=== PATIENT | male | born 1970 | race Caucasian/White ===

== ENCOUNTER 2016-08-01 20:57 | Inpatient (IN) | payer BC ==
[~2016-08-01] VITALS: Ht 177.8 cm; Wt 163.8 kg
[2016-08-01] MEDS ORDERED: humuLIN REG INSULIN ONE (22:25)
[2016-08-01] MEDS ORDERED: SODIUM CHLORIDE 0.9% 1,000 ML ONE (22:25)
[2016-08-02] VITALS (22 sets, daily range): BP systolic 93–137; RESP 16–20; TEMP 97.4–98.5; Ht 177.8 cm; Wt 163.8 kg
[2016-08-02] MEDS ORDERED: GLUCAGON 1 MG VIAL IM PRN (01:40)
[2016-08-02] MEDS ORDERED: DEPOTESTOSTERONE IM SCH (01:40)
[2016-08-02] MEDS ORDERED: SALINE FLUSH 10 ML FLUSH PRN (01:40)
[2016-08-02] MEDS ORDERED: DEXTROSE 50% SYRINGE 50 ML IV PRN (01:40)
[2016-08-02] MEDS ORDERED: AZITHROMYCIN 500 MG in SODIUM CHLORIDE 0.9% 250 ML IV SCH (03:13)
[2016-08-02] MEDS: SALINE FLUSH 10 ML FLUSH SCH ×3 (04:21→20:54)
[2016-08-02] MEDS: CEFTRIAXONE 1 GM in SODIUM CHLORIDE 0.9% 50 ML IV SCH (04:22)
[2016-08-02] MEDS: SODIUM CHLORIDE 0.9% FLUSH BAG 500 ML IV SCH (04:22)
[2016-08-02] MEDS: OPANA 20 MG PO SCH ×2 (08:12→20:54)
[2016-08-02] MEDS: ALLOPURINOL 300 MG TAB PO SCH ×2 (08:12→20:54)
[2016-08-02] MEDS ORDERED: METOPROLOL 5 MG/5 ML VIAL IV ONE ×3 (12:30→13:15)
[2016-08-02] MEDS ORDERED: LEVEMIR INSULIN SUBQ ONE (12:30)
[2016-08-02] MEDS ORDERED: DILTIAZEM 125 MG in DEXTROSE 125 ML IV ONE (15:00)
[2016-08-02] MEDS ORDERED: DILTIAZEM 125 MG in DEXTROSE 125 ML IV PUSH ONE (15:40)
[2016-08-02] MEDS: CARDIZEM 1 MG/ML DRIP 125 ML IV SCH (15:44)
[2016-08-02] MEDS: Hydrocodone/APAP 10/325 MG TAB PO PRN (18:24)
[2016-08-02] MEDS: LEVOTHYROXINE 0.05 MG TAB PO SCH (20:53)
[2016-08-02] MEDS: Atorvastatin 40 MG TAB PO SCH (20:54)
[2016-08-02] MEDS: LEVOTHYROXINE 0.2 MG TAB PO SCH (20:54)
[2016-08-02] MEDS: VENLAFAXINE XR 75 MG CAP PO SCH (20:54)
[2016-08-02] MEDS ORDERED: DIAZEPAM 5 MG TAB PO SCH (21:00)
[2016-08-02] MEDS ORDERED: DIAZEPAM 5 MG TAB PO PRN (21:00)
[2016-08-02] MEDS ORDERED: LEVEMIR INSULIN SUBQ SCH (21:00)
[2016-08-02] MEDS ORDERED: MISSING DOSE XX ONE (23:55)
[2016-08-03] VITALS (22 sets, daily range): BP systolic 103–154; RESP 16–20; TEMP 97.5–98.9
[2016-08-03] MEDS: CARDIZEM 1 MG/ML DRIP 125 ML IV SCH ×2 (00:18→15:02)
[2016-08-03] MEDS: SODIUM CHLORIDE 0.9% FLUSH BAG 500 ML IV SCH (03:27)
[2016-08-03] MEDS: Hydrocodone/APAP 10/325 MG TAB PO PRN ×3 (03:27→22:35)
[2016-08-03] MEDS: CEFTRIAXONE 1 GM in SODIUM CHLORIDE 0.9% 50 ML IV SCH (08:08)
[2016-08-03] MEDS: ALLOPURINOL 300 MG TAB PO SCH ×2 (08:09→22:17)
[2016-08-03] MEDS: OPANA 20 MG PO SCH ×2 (08:10→22:22)
[2016-08-03] MEDS: SALINE FLUSH 10 ML FLUSH SCH ×2 (08:10→22:17)
[2016-08-03] MEDS ORDERED: METOPROLOL XL 25 MG TAB PO SCH (09:00)
[2016-08-03] MEDS: DILTIAZEM CD 180 MG CAP PO SCH (11:52)
[2016-08-03] MEDS: VENLAFAXINE XR 75 MG CAP PO SCH (21:00)
[2016-08-03] MEDS: METOPROLOL XL 50 MG TAB PO SCH (22:17)
[2016-08-03] MEDS: LEVOTHYROXINE 0.05 MG TAB PO SCH (22:18)
[2016-08-03] MEDS: LEVOTHYROXINE 0.2 MG TAB PO SCH (22:18)
[2016-08-03] MEDS: Atorvastatin 40 MG TAB PO SCH (22:19)
[2016-08-03] MEDS: LEVEMIR INSULIN SUBQ SCH (22:28)
[2016-08-04 03:35] VITALS: BP_SYST 125; RESP 18; TEMP 97.6
[2016-08-04] MEDS: SODIUM CHLORIDE 0.9% FLUSH BAG 500 ML IV SCH (05:34)
[2016-08-04 07:47] VITALS: BP_SYST 112; RESP 18; TEMP 98.4
[2016-08-04] MEDS: DILTIAZEM CD 180 MG CAP PO SCH (08:16)
[2016-08-04] MEDS: SALINE FLUSH 10 ML FLUSH SCH ×2 (08:16→21:13)
[2016-08-04] MEDS: CEFTRIAXONE 1 GM in SODIUM CHLORIDE 0.9% 50 ML IV SCH (08:16)
[2016-08-04] MEDS: METOPROLOL XL 50 MG TAB PO SCH ×2 (08:16→21:15)
[2016-08-04] MEDS: ALLOPURINOL 300 MG TAB PO SCH ×2 (08:16→21:15)
[2016-08-04] MEDS: Hydrocodone/APAP 10/325 MG TAB PO PRN (08:17)
[2016-08-04] MEDS: OPANA 20 MG PO SCH ×2 (08:17→21:14)
[2016-08-04 11:25] VITALS: BP_SYST 129; RESP 18; TEMP 98.9
[2016-08-04] MEDS ORDERED: AZELASTINE NASAL 30 ML BTL NARE EACH ONE (14:33)
[2016-08-04] MEDS: FLUTICASONE 0.05% NA BTL NARE EACH SCH ×2 (15:15→21:14)
[2016-08-04 16:28] VITALS: BP_SYST 136; RESP 18; TEMP 98.4
[2016-08-04 20:33] VITALS: BP_SYST 136; RESP 20; TEMP 99.2
[2016-08-04] MEDS: VENLAFAXINE XR 75 MG CAP PO SCH (21:00)
[2016-08-04] MEDS: AZELASTINE NASAL 30 ML BTL NARE EACH SCH (21:15)
[2016-08-04] MEDS: Atorvastatin 40 MG TAB PO SCH (21:15)
[2016-08-04] MEDS: LEVOTHYROXINE 0.2 MG TAB PO SCH (21:15)
[2016-08-04] MEDS: LEVOTHYROXINE 0.05 MG TAB PO SCH (21:16)
[2016-08-04] MEDS: LEVEMIR INSULIN SUBQ SCH (21:17)
[2016-08-04 23:10] VITALS: BP_SYST 130; RESP 18; TEMP 98.3
[2016-08-05 03:40] VITALS: BP_SYST 142; RESP 18; TEMP 97.7
[2016-08-05] MEDS: SODIUM CHLORIDE 0.9% FLUSH BAG 500 ML IV SCH (05:53)
[2016-08-05 07:42] VITALS: BP_SYST 120; RESP 18; TEMP 97.5
[2016-08-05] MEDS: SALINE FLUSH 10 ML FLUSH SCH ×2 (08:49→20:49)
[2016-08-05] MEDS: OPANA 20 MG PO SCH ×2 (08:49→20:51)
[2016-08-05] MEDS: LEVEMIR INSULIN SUBQ SCH ×2 (08:50→17:28)
[2016-08-05] MEDS: FLUTICASONE 0.05% NA BTL NARE EACH SCH ×2 (08:51→21:00)
[2016-08-05] MEDS: CEFTRIAXONE 1 GM in SODIUM CHLORIDE 0.9% 50 ML IV SCH (08:51)
[2016-08-05] MEDS: AZELASTINE NASAL 30 ML BTL NARE EACH SCH ×2 (08:51→21:00)
[2016-08-05] MEDS: METOPROLOL XL 50 MG TAB PO SCH ×2 (08:52→20:51)
[2016-08-05] MEDS: ENOXAPARIN 40 MG/0.4 ML SYR SUBQ SCH (08:52)
[2016-08-05] MEDS: DILTIAZEM CD 180 MG CAP PO SCH (08:52)
[2016-08-05] MEDS: ALLOPURINOL 300 MG TAB PO SCH ×2 (08:52→20:51)
[2016-08-05 10:59] VITALS: BP_SYST 123; RESP 16; TEMP 98.7
[2016-08-05 15:04] VITALS: BP_SYST 117; RESP 18; TEMP 98.7
[2016-08-05 20:34] VITALS: BP_SYST 130; RESP 18; TEMP 98.5
[2016-08-05] MEDS: LEVOTHYROXINE 0.05 MG TAB PO SCH (20:51)
[2016-08-05] MEDS: Atorvastatin 40 MG TAB PO SCH (20:51)
[2016-08-05] MEDS: LEVOTHYROXINE 0.2 MG TAB PO SCH (20:51)
[2016-08-05] MEDS: VENLAFAXINE XR 75 MG CAP PO SCH (21:00)
[2016-08-05] MEDS: Hydrocodone/APAP 10/325 MG TAB PO PRN (21:04)
[2016-08-05 23:36] VITALS: BP_SYST 133; RESP 20; TEMP 99.2
[2016-08-06 03:26] VITALS: BP_SYST 123; RESP 20; TEMP 98.7
[2016-08-06] MEDS: SODIUM CHLORIDE 0.9% FLUSH BAG 500 ML IV SCH (05:36)
[2016-08-06 07:39] VITALS: BP_SYST 113; RESP 18; TEMP 98.7
[2016-08-06] MEDS ORDERED: MISSING DOSE XX ONE (08:30)
[2016-08-06] MEDS: OPANA 20 MG PO SCH (08:38)
[2016-08-06] MEDS: FLUTICASONE 0.05% NA BTL NARE EACH SCH (08:40)
[2016-08-06] MEDS: AZELASTINE NASAL 30 ML BTL NARE EACH SCH (08:40)
[2016-08-06] MEDS: LEVEMIR INSULIN SUBQ SCH (08:40)
[2016-08-06] MEDS: ENOXAPARIN 40 MG/0.4 ML SYR SUBQ SCH (08:41)
[2016-08-06] MEDS: DILTIAZEM CD 180 MG CAP PO SCH (08:41)
[2016-08-06] MEDS: METOPROLOL XL 50 MG TAB PO SCH (08:41)
[2016-08-06] MEDS: ALLOPURINOL 300 MG TAB PO SCH (08:41)
[2016-08-06] MEDS: CEFTRIAXONE 1 GM in SODIUM CHLORIDE 0.9% 50 ML IV SCH (10:17)
[2016-08-06] MEDS: SALINE FLUSH 10 ML FLUSH SCH (10:17)
[2016-08-06 11:16] VITALS: BP_SYST 123; RESP 16; TEMP 99.1
[2016-08-06 13:09] VITALS: BP_SYST 123; RESP 16; TEMP 99.1
== END 2016-08-06 14:17 | disposition home or self-care (01) | DRG 153 ==
LOC: ENRESERVDT → ENRESERVTM → ER 20:57 → EMR 20:58 → UNDOADMOB 08-02 01:37 → EMR 08-02 01:37 → 4THW 08-02 03:10 → ENPENDDIS 08-03 10:58 → OBSVTOIN 08-03 10:58
PROVIDERS: ADMIT Family Medicine; ATTEND Family Medicine
CPT/HCPCS: 36415; 70450; 70486; 71010; 80053; 80061; 82550; 82553; 82947; 83721; 83735; 83880; 84439; 84443; 84484; 85025; 85379; 87040; 87071; 87278; 87299; 93005; 93306; 94799; 96361; 96372; 99219; 99232; 99233; 99239